=== PATIENT | male | born 1940 | race Caucasian/White ===

== ENCOUNTER 2017-12-20 20:14 | Observation (INO) | payer OTHER, MEDICARE ==
[2017-12-20] MEDS ORDERED: NA CHLORIDE 0.9% 1,000 ML ONE (21:18)
[2017-12-20 21:22] LABS: Absolute Lymphocytes (CBC) 0.9 K/uL (0.7-4.9); Absolute Monocytes 0.6 K/uL (0.1-1.3); Absolute Neutrophil 7.6 K/uL (1.8-8.0); Basophils % 0.1 % (0-1.3); Eosinophils % 2.1 % (0-4.4); Hematocrit 40.9 % (39.6-49.0); Lymphocytes % 10.1 % (15.3-44.8); MCH 31.2 pg (27.0-35.0); MCV 90.5 fL (80-100); MPV 7.8 fL (7.6-11.3); Monocytes % 6.7 % (3.3-12.3); RBC Red Blood Cell Count 4.52 M/uL (4.33-5.43)
[2017-12-20 21:34] LABS: Protime INR 0.96
[2017-12-20 21:36] LABS: Urine Blood NEGATIVE (NEG); Urine Glucose NEGATIVE (NEG); Urine Protein NEGATIVE (NEG); Urine pH 5.5 (5.0-7.0)
[2017-12-20 21:46] LABS: Bilirubin Direct 0.1 mg/dL (0-0.2); Bilirubin Total 0.5 mg/dL (0.2-1.0); CKMB Creatine Kinase MB 8.3 ng/mL (0.3-3.6); Magnesium 2.1 mg/dL (1.8-2.4); Potassium 3.7 mmol/L (3.5-5.1); Protein, Total 7.3 g/dL (6.4-8.2)
[2017-12-20] MEDS ORDERED: ASPIRIN 81 MG CHEWABLE TABLET ONE (22:13)
--- NOTE | 2017-12-20 22:18 | EDPHYS ---
Physician Documentation [facility] Name: Bradley Osei Age: 77 yrs Sex: Male : 1940 Arrival Date: 12/20/2017 Time: 20:17 Bed 17 Private MD: ED Physician Ryan Regan HPI: 12/20 22:09 This 77 yrs old Male presents to ER via EMS with complaints of Nausea. finesse 22:09 The patient presents to the emergency department with nausea, vomiting. finesse Historical: - Allergies: 20:37 NSAIDS; bs1 - Home Meds: 20:37 Aspirin Oral [Active]; tylenol [Active]; carvedilol oral oral [Active]; amlodipine oral bs1 [Active]; Novolin N Sub-Q [Active]; Novolin R Sub-Q [Active]; Spironolactone Oral [Active]; Lovastatin Oral [Active]; - PMHx: 20:37 enlarged prostate; High Cholesterol; Hypertension; carpal tunnel; bs1 20:42 Ulcers; stomach issues; bs1 - PSHx: 20:37 Cholecystectomy; shoulder replacement; back fusions; bs1 - Immunization history:: Adult Immunizations up to date. - Social history:: Smoking status: Patient/guardian denies using tobacco. - Ebola Screening: : Patient negative for fever greater than or equal to 101.5 degrees Fahrenheit, and additional compatible Ebola Virus Disease symptoms Patient denies exposure to infectious person. ROS: 22:09 Constitutional: Negative for fever, chills, and weight loss, Eyes: Negative for injury, finesse pain, redness, and discharge, ENT: Negative for injury, pain, and discharge, Neck: Negative for injury, pain, and swelling, Cardiovascular: Negative for chest pain, palpitations, and edema, Respiratory: Negative for shortness of breath, cough, wheezing, and pleuritic chest pain, Abdomen/GI: Negative for abdominal pain, nausea, vomiting, diarrhea, and constipation, Back: Negative for injury and pain, : Negative for injury, bleeding, discharge, and swelling, MS/Extremity: Negative for injury and deformity, Skin: Negative for injury, rash, and discoloration, Psych: Negative for depression, anxiety, suicide ideation, homicidal ideation, and hallucinations, Allergy/Immunology: Negative for hives, rash, and allergies, Endocrine: Negative for neck swelling, polydipsia, polyuria, polyphagia, and marked weight changes, Hematologic/Lymphatic: Negative for swollen nodes, abnormal bleeding, and unusual bruising. 22:09 Neuro: Positive for near syncope, weakness. Exam: 22:09 Constitutional: This is a well developed, well nourished patient who is awake, alert, finesse and in no acute distress. Head/Face: Normocephalic, atraumatic. Eyes: Pupils equal round and reactive to light, extra-ocular motions intact. Lids and lashes normal. Conjunctiva and sclera are non-icteric and not injected. Cornea within normal limits. Periorbital areas with no swelling, redness, or edema. ENT: Nares patent. No nasal discharge, no septal abnormalities noted. Tympanic membranes are normal and external auditory canals are clear. Oropharynx with no redness, swelling, or masses, exudates, or evidence of obstruction, uvula midline. Mucous membranes moist. Neck: Trachea midline, no thyromegaly or masses palpated, and no cervical lymphadenopathy. Supple, full range of motion without nuchal rigidity, or vertebral point tenderness. No Meningismus. Chest/axilla: Normal chest wall appearance and motion. Nontender with no deformity. No lesions are appreciated. Cardiovascular: Regular rate and rhythm with a normal S1 and S2. No gallops, murmurs, or rubs. Normal PMI, no JVD. No pulse deficits. Respiratory: Lungs have equal breath sounds bilaterally, clear to auscultation and percussion. No rales, rhonchi or wheezes noted. No increased work of breathing, no retractions or nasal flaring. Abdomen/GI: Soft, non-tender, with normal bowel sounds. No distension or tympany. No guarding or rebound. No evidence of tenderness throughout. Back: No spinal tenderness. No costovertebral tenderness. Full range of motion. Male : Normal genitalia with no discharge or lesions. Skin: Warm, dry with normal turgor. Normal color with no rashes, no lesions, and no evidence of cellulitis. MS/ Extremity: Pulses equal, no cyanosis. Neurovascular intact. Full, normal range of motion. Psych: Awake, alert, with orientation to person, place and time. Behavior, mood, and affect are within normal limits. 22:09 Neuro: Orientation: is normal, appropriate for stated age, Mentation: is normal, appropriate for stated age, Memory: is normal, appropriate for stated age, Cranial nerves: grossly normal, is grossly normal based on the patient's age, no acute changes, Cerebellar function: is grossly normal, is grossly normal based on the patient's age, no acute changes, Motor: no acute changes, moves all fours, Sensation: is normal, no obvious gross deficits, Gait: not tested. Babinski testing is normal. Vital Signs: 20:17 BP 167 / 66; Pulse 51; Resp 16; Temp 98(A); Pulse Ox 99% ; Weight 92.53 kg; Height 5 bs1 ft. 7 in. (170.18 cm); Pain 0/10; 21:17 BP 152 / 61; Pulse 48; Resp 15 S; Pulse Ox 99% on R/A; bs1 22:17 BP 160 / 72; Pulse 52; Resp 14 S; Pulse Ox 100% on R/A; bs1 23:17 BP 145 / 68; Pulse 58; Resp 16 S; Pulse Ox 97% on R/A; bs1 12/21 00:17 BP 131 / 60; Pulse 55; Resp 16 S; Temp 97.5(O); Pulse Ox 93% on R/A; Pain 0/10; bs1 12/20 20:17 Body Mass Index 31.95 (92.53 kg, 170.18 cm) bs1 MDM: 12/20 20:45 Patient medically screened. [facility] 22:09 Data reviewed: vital signs, nurses notes, lab test result(s), EKG, radiologic studies, [facility] CT scan, plain films. 12/20 21:06 Order name: Basic Metabolic Panel; Complete Time: 22:06 [facility] 12/20 21:06 Order name: CBC with Diff; Complete Time: 22:06 [facility] 12/20 21:06 Order name: Ckmb; Complete Time: 22: [facility] 12/20 21:06 Order name: CPK; Complete Time: 22: [facility] 12/20 21:06 Order name: LFT's; Complete Time: 22:06 [facility] 12/20 21:06 Order name: Magnesium; Complete Time: 22:06 [facility] 12/20 21:06 Order name: NT PRO-BNP; Complete Time: 22:06 [facility] 12/20 21:06 Order name: PT-INR; Complete Time: 22:06 [facility] 12/20 21:06 Order name: Ptt, Activated; Complete Time: 22: [facility] 12/20 21:06 Order name: Troponin (emerg Dept Use Only); Complete Time: 22: [facility] 12/20 21:06 Order name: XRAY Chest (1 view) [facility] 12/20 21:06 Order name: Lipase; Complete Time: 22: [facility] 12/20 21:16 Order name: Urine Culture [facility] 12/20 21:33 Order name: Urine Dipstick--Ancillary (enter results); Complete Time: 22: 12/20 21:06 Order name: EKG; Complete Time: 21: [facility] 12/20 21:06 Order name: Cardiac monitoring; Complete Time: : [facility] 12/20 21:06 Order name: EKG - Nurse/Tech; Complete Time: : [facility] 12/20 21:06 Order name: IV Saline Lock; Complete Time: : [facility] 12/20 21:06 Order name: Labs collected and sent; Complete Time: : [facility] 12/20 21:06 Order name: O2 Per Protocol; Complete Time: : [facility] 12/20 21:06 Order name: O2 Sat Monitoring; Complete Time: : [facility] 12/20 21:06 Order name: Urine Dipstick-Ancillary (obtain specimen); Complete Time: : [facility] 12/20 22:08 Order name: PO challenge; Complete Time: 22:35 [facility] Administered Medications: 21:27 Drug: NS 0.9% 1000 ml Route: IV; Rate: 125 ml/hr; Site: right antecubital; 1 12/21 00:38 Follow up: IV Status: Infusion continued upon admission bs1 12/20 22:14 Drug: Aspirin Chewable Tablet 162 mg Route: PO; bs1 12/21 00:38 Follow up: Response: No adverse reaction bs1 Disposition: 12/20/17 22:17 Hospitalization ordered by Briseida Vega for Observation. Preliminary diagnosis are Syncope and collapse - near, Hypoglycemia, unspecified. - Bed requested for Telemetry/MedSurg (observation). - Status is Observation. bs1 - Condition is Fair. - Problem is new. - Symptoms have improved. UTI on Admission? No Signatures: Dispatcher [employer] Sabrina Tesfaye RN RN kl Anderson, Corey, MD MD [facility] Chan, Isa, RN RN bs1 Corrections: (The following items were deleted from the chart) 12/20 22:22 22:17 Hospitalization Ordered by Briseida Vega MD for Observation. Preliminary finesse diagnosis is Syncope and collapse - near. Bed requested for Telemetry/MedSurg (observation). Status is Observation. Condition is Fair. Problem is new. Symptoms have improved. UTI on Admission? No. finesse 12/21 00:03 12/20 22:22 12/20/2017 22:17 Hospitalization Ordered by Briseida Vega MD for kl Observation. Preliminary diagnosis is Syncope and collapse - near; Hypoglycemia, unspecified. Bed requested for Telemetry/MedSurg (observation). Status is Observation. Condition is Fair. Problem is new. Symptoms have improved. UTI on Admission? No. finesse 12/21 00:57 00:03 12/20/2017 22:17 Hospitalization Ordered by Briseida Vega MD for Observation. bs1 Preliminary diagnosis is Syncope and collapse - near; Hypoglycemia, unspecified. Bed requested for Telemetry/MedSurg (observation). Status is Observation. Condition is Fair. Problem is new. Symptoms have improved. UTI on Admission? No. matt
--- NOTE | 2017-12-20 22:18 | ER ---
Nurse's Notes [facility] Name: Bradley Osei Age: 77 yrs Sex: Male : 1940 Arrival Date: 12/20/2017 Time: 20:17 Bed 17 Private MD: Diagnosis: Syncope and collapse-near;Hypoglycemia, unspecified Presentation: 12/20 20:17 Presenting complaint: EMS states: "Patient called for c/o nausea and weakness sometime bs1 today, patient was in his car in [place], patient states that his blood sugar may be low, BG was 84 oral glucose given." Patient denies any chest pain or SOB. Transition of care: patient was not received from another setting of care. Onset of symptoms was December 20, 2017. Risk Assessment: Do you want to hurt yourself or someone else? Patient reports no desire to harm self or others. Initial Sepsis Screen: Does the patient meet any 2 criteria? No. Patient's initial sepsis screen is negative. Does the patient have a suspected source of infection? No. Patient's initial sepsis screen is negative. Care prior to arrival: Medication(s) given: oral glucose Glucose check: 84 Oxygen administered. via nasal cannula, 3L NC. 20:17 Method Of Arrival: EMS: [facility] bs1 20:17 Acuity: PAT 3 bs1 Historical: - Allergies: 20:37 NSAIDS; bs1 - Home Meds: 20:37 Aspirin Oral [Active]; tylenol [Active]; carvedilol oral oral [Active]; amlodipine oral bs1 [Active]; Novolin N Sub-Q [Active]; Novolin R Sub-Q [Active]; Spironolactone Oral [Active]; Lovastatin Oral [Active]; - PMHx: 20:37 enlarged prostate; High Cholesterol; Hypertension; carpal tunnel; bs1 20:42 Ulcers; stomach issues; bs1 - PSHx: 20:37 Cholecystectomy; shoulder replacement; back fusions; bs1 - Immunization history:: Adult Immunizations up to date. - Social history:: Smoking status: Patient/guardian denies using tobacco. - Ebola Screening: : Patient negative for fever greater than or equal to 101.5 degrees Fahrenheit, and additional compatible Ebola Virus Disease symptoms Patient denies exposure to infectious person. Screenin:16 Abuse screen: Denies threats or abuse. Denies injuries from another. Nutritional bs1 screening: No deficits noted. Tuberculosis screening: No symptoms or risk factors identified. Fall Risk No fall in past 12 months (0 pts). No secondary diagnosis (0 pts). IV access (20 points). Ambulatory Aid- Crutches/Cane/Walker (15 pts). Gait- Weak (10 pts.). Mental Status- Oriented to own ability (0 pts). Total Perez Fall Scale indicates Low Risk Score (25-44 pts). Fall prevention measures have been instituted. Side Rails Up X 2 Frequent Obs/Assesments occuring Family Present and informed to notify staff if they need to leave bedside As available Patient and Family Educated on Fall Prevention Program and strategies. Assessment: 20:39 General: Appears in no apparent distress. uncomfortable, Behavior is cooperative. Pain: bs1 Denies pain. Neuro: Level of Consciousness is awake, lethargic, Oriented to person, place, time, situation, Appropriate for age Speech is normal, Facial symmetry appears normal, Pupils are PERRLA, Intact Reports dizziness, weakness Denies blurred vision difficulty swallowing, numbness headache. Cardiovascular: Denies chest pain, palpitations, shortness of breath, Heart tones S1 S2 present Capillary refill < 3 seconds Patient's skin is warm and dry. Respiratory: Airway is patent Trachea midline Respiratory effort is even, unlabored, Respiratory pattern is regular, symmetrical, Breath sounds are clear bilaterally. GI: Abdomen is round non-distended, Bowel sounds present X 4 quads. Reports nausea. : No signs and/or symptoms were reported regarding the genitourinary system. EENT: No signs and/or symptoms were reported regarding the EENT system. Derm: Skin is intact. Musculoskeletal: Circulation, motion, and sensation intact. Capillary refill < 3 seconds, Range of motion: intact in all extremities, Reports weakness in generalized body weakness. 21:30 Reassessment: No changes from previously documented assessment. Patient and/or family bs1 updated on plan of care and expected duration. Pain level reassessed. Patient is alert, oriented x 3, equal unlabored respirations, skin warm/dry/pink. 22:14 Reassessment: [place] and A diet sprite given to patient. bs1 22:35 Reassessment: PO challenge tolerated. bs1 12/21 00:30 Reassessment: Patient appears in no apparent distress at this time. Patient and/or bs1 family updated on plan of care and expected duration. Pain level reassessed. Patient is alert, oriented x 3, equal unlabored respirations, skin warm/dry/pink. Patient educated on POC and need for admit. No further needs at this time. Patient denies pain at this time. Vital Signs: 12/20 20:17 BP 167 / 66; Pulse 51; Resp 16; Temp 98(A); Pulse Ox 99% ; Weight 92.53 kg; Height 5 bs1 ft. 7 in. (170.18 cm); Pain 0/10; 21:17 BP 152 / 61; Pulse 48; Resp 15 S; Pulse Ox 99% on R/A; bs1 22:17 BP 160 / 72; Pulse 52; Resp 14 S; Pulse Ox 100% on R/A; bs1 23:17 BP 145 / 68; Pulse 58; Resp 16 S; Pulse Ox 97% on R/A; bs1 12/21 00:17 BP 131 / 60; Pulse 55; Resp 16 S; Temp 97.5(O); Pulse Ox 93% on R/A; Pain 0/10; bs1 12/20 20:17 Body Mass Index 31.95 (92.53 kg, 170.18 cm) bs1 ED Course: 12/20 20:17 Patient arrived in ED. fc 20:24 Isa Chan, RN is Primary Nurse. bs1 20:33 Triage completed. bs1 20:44 Ryan Regan MD is Attending Physician. [facility] 21:00 Inserted saline lock: 22 gauge in right antecubital area, using aseptic technique. bs1 Blood collected. 22:16 X-ray completed. Portable x-ray completed in exam room. Patient tolerated procedure la2 well. 22:16 Briseida Vega MD is Hospitalizing Provider. [facility] 22:17 Patient has correct armband on for positive identification. Bed in low position. Call bs1 light in reach. Side rails up X 1. Pulse ox on. NIBP on. 22:17 Arm band placed on left wrist. EKG completed in triage. Results shown to MD. bs1 22:22 XRAY Chest (1 view) In Process Unspecified. EDMS 12/21 00:36 No provider procedures requiring assistance completed. bs1 00:37 Patient admitted, IV remains in place. intact. bs1 Administered Medications: 12/20 21:27 Drug: NS 0.9% 1000 ml Route: IV; Rate: 125 ml/hr; Site: right antecubital; bs 12/21 00:38 Follow up: IV Status: Infusion continued upon admission bs1 12/20 22:14 Drug: Aspirin Chewable Tablet 162 mg Route: PO; bs 12/21 00:38 Follow up: Response: No adverse reaction bs1 Outcome: 12/20 22:17 Decision to Hospitalize by Provider. [facility] 12/21 00:36 Admitted to Tele accompanied by tech, via stretcher, room 431, Report called to bs1 TAWNYA Dhillon Condition: stable Instructed on the need for admit. 00:57 Patient left the ED. bs1 Signatures: Dispatcher [employer] Ryan Rutherford MD MD cha Chretien, Felicia, RN RN fc Ardoin, Leslie la2 Salazar, Brittany, RN RN bs1
--- NOTE | 2017-12-20 23:05 | P.HP ---
Certification for Inpatient Patient admitted to: Observation With expected LOS: <2 Midnights Practitioner: I am a practitioner with admitting privileges, knowledge of patient current condition, hospital course, and medical plan of care. Services: Services provided to patient in accordance with Admission requirements found in Title 42 Section 412.3 of the Code of Federal Regulations Patient History Date of Service: 12/20/17 Reason for admission: weakness, nausea. History of Present Illness: Mr Osei is a 77 years old male with history of IDDM, HTN, who was at [facility] today when suddenly start feeling nausea, weakness and diaphoretic. He believed that it was hypoglycemia, and he ate 2 proteines bar. Gradually start feeling better. Then he was able to drive back home, however, he did not feel completely recover. He denied fever, but has had some chills. Also denied cough , SOB, chest pain, abdominal pain or burning urination. He called 911, when EMS arrived home his BS was 84 mg/dl. He states that he usually run high BS and 84 was low for him. Lab work shows normal WBC count, BS 117 mg/dl. Allergies No Known Allergies Allergy (Verified 10/14/14 22:17) Home medications list reviewed: Yes Home Medications: Amlodipine [Norvasc*] 10 mg PO DAILY 10/15/14 Ascorbic Acid [Vitamin C*] 500 mg PO BID 10/15/14 Hydrocodone 5/APAP 325 [[place] 5/325*] 1 tab PO Q4H PRN 10/15/14 Insulin Aspart [Novolog] 5 units SQ TID 10/15/14 Insulin Detemir [Levemir] 35 units SQ DAILY 10/15/14 Lovastatin [Mevacor*] 40 mg PO BEDTIME 10/15/14 Ranitidine [Zantac*] 150 mg PO DAILY PRN 10/15/14 Tamsulosin [Flomax*] 1 cap PO DAILY 10/15/14 Tramadol HCl [Ultram] 50 mg PO BID PRN 10/15/14 Aspirin [Ecotrin 81 MG] 81 mg PO DAILY #30 tablet. 10/29/14 Carvedilol [Coreg*] 12.5 mg PO BID #60 tab 10/29/14 Cyclobenzaprine [Flexeril*] 10 mg PO BIDP PRN #60 tab 10/29/14 Docusate [Colace Cap*] 100 mg PO BID #60 cap 10/29/14 Iron/FA/Vit B-Com W/C [Hemocyte Plus*] 1 tab PO BIDWM #60 tab 10/29/14 Sodium Chloride Tab [Sodium Chloride*] 2 gm PO BIDWM #60 tab 10/29/14 - Past Medical/Surgical History Diabetic: Yes -: ESSENTIAL HTN -: BPH -: GERD -: PEPTIC ULCER DISEASE -: BACK PAIN -: CARPAL RICHARD -: TONSILECTOMY -: VASECTOMY -: ALEJANDRO - Family History Family History: Reviewed- Non-Contributory - Social History Smoking Status: Never smoker Alcohol use: No CD- Drugs: No Caffeine use: Yes Place of Residence: Home Review of Systems 10-point ROS is otherwise unremarkable Physical Examination - Physical Exam General: Alert, In no apparent distress HEENT: Atraumatic, PERRLA, Mucous membr. moist/pink, EOMI, Sclerae nonicteric Neck: Supple, 2+ carotid pulse no bruit, No LAD, Without JVD or thyroid abnormality Respiratory: Clear to auscultation bilaterally, Normal air movement Cardiovascular: Regular rate/rhythm, Normal S1 S2 Gastrointestinal: Normal bowel sounds, No tenderness Musculoskeletal: No tenderness, Swelling (LE edema 1+ bilateral) Integumentary: No rashes Neurological: Normal speech, Normal strength at 5/5 x4 extr, Normal tone, Normal affect Lymphatics: No axilla or inguinal lymphadenopathy - Studies Laboratory Data (last 24 hrs) 12/20/17 21:00: PT 11.3, INR 0.96, APTT 28.2 12/20/17 21:00: WBC 9.3, Hgb 14.1, Hct 40.9, Plt Count 169 12/20/17 21:00: Sodium 136, Potassium 3.7, BUN 21 H, Creatinine 0.90, Glucose 117 H, Magnesium 2.1, Total Bilirubin 0.5, AST 32, ALT 43, Alkaline Phosphatase 75, Lipase 128 Assessment and Plan - Problems (Diagnosis) (1) Pre-syncope Current Visit: Yes Status: Acute (2) Diabetes mellitus type 2, insulin dependent Onset Date: 10/17/14 Current Visit: No Status: Acute (3) Essential hypertension Onset Date: 10/17/14 Current Visit: No Status: Acute - Plan Mr Osei will be admitted to the hospital due to presyncope episode. There are no obvious signs of acute infection. Possible hypoglycemic episode. He is still weak, and does not feel completely recover. Will monitor his BS and adjust it with SSI. - Advance Directives Does patient have a Living Will: No Does patient have a Durable POA for Healthcare: No - Code Status/Comfort Care Code Status Assessed: Yes Code Status: Full Code
[2017-12-21 01:05] VITALS: O2SAT 93
[2017-12-21] MEDS ORDERED: ONDANSETRON 4 MG/2 ML VIAL IV PRN (01:22)
[2017-12-21] MEDS ORDERED: ACETAMINOPHEN 500 MG TAB PO PRN (01:22)
[2017-12-21] MEDS ORDERED: POTASSIUM 25 MEQ EFFERV TAB PO ONE (01:35)
[2017-12-21] MEDS: NA CHLORIDE 0.9% 1,000 ML IV SCH ×2 (01:56→11:22)
[2017-12-21 04:56] VITALS: BMI 32.7
--- NOTE | 2017-12-21 06:20 | EKG ---
Test Date: 2017-12-20 Test Time: 21:20:07 Cuff Matcher: DENISHA MEASUREMENT RESULTS: Intervals: Rate: 52 VT: 184 QRSD: 168 QT: 490 QTc: 455 [place]: P: 20 VT: 184 QRS: -38 T: -12 INTERPRETIVE STATEMENTS: Sinus bradycardia Left axis deviation Right bundle branch block Abnormal ECG Compared to ECG 09/15/1995 09:34:00 Left-axis deviation now present Right bundle-branch block now present Sinus rhythm no longer present Electronically Signed On 12-21-17 06:19:31 CDT by Lamine Luna
[2017-12-21 07:24] LABS: Absolute Lymphocytes (CBC) 1.4 K/uL (0.7-4.9); Absolute Monocytes 0.6 K/uL (0.1-1.3); Absolute Neutrophil 3.5 K/uL (1.8-8.0); Basophils % 0.2 % (0-1.3); Eosinophils % 4.1 % (0-4.4); Hematocrit 35.1 % (39.6-49.0); MCH 31.7 pg (27.0-35.0); MCV 90.4 fL (80-100); Monocytes % 10.3 % (3.3-12.3); RBC Red Blood Cell Count 3.89 M/uL (4.33-5.43)
[2017-12-21] MEDS: INSULIN -REGULAR HUMAN 50 UNIT/0.5 ML ML SQ SCH ×3 (07:30→17:08)
[2017-12-21 07:37] LABS: BUN Blood Urea Nitrogen 16 mg/dL (7-18); Bicarbonate 28 mmol/L (21-32); Glucose Level 124 mg/dL (74-106); Potassium 3.9 mmol/L (3.5-5.1); Sodium Level 139 mmol/L (136-145)
[2017-12-21] MEDS ORDERED: ENOXAPARIN 40 MG/0.4 ML SQ SCH (09:00)
--- NOTE | 2017-12-21 10:56 | RAD REPORT ---
EXAM DESCRIPTION: CT - Head Brain Wo Cont - 12/21/2017 10:15 am CLINICAL HISTORY: syncope COMPARISON: <Comparisons> TECHNIQUE: All CT scans are performed using dose optimization technique as appropriate and may inclu de automated exposure control or mA/KV adjustment according to patient size. FINDINGS: No intracranial hemorrhage, hydrocephalus or extra-axial fluid collection.Mild generalized brain atrophy is present with mild periventricular and deep white matter chronic microvascular ische dimas changes.No areas of brain edema or evidence of midline shift. The paranasal sinuses and mastoids are clear. The calvarium is intact. IMPRESSION: No acute intracranial abnormality.
[2017-12-21] MEDS ORDERED: AMLODIPINE 10 MG TAB PO SCH (11:00)
[2017-12-21] MEDS ORDERED: SPIRONOLACTONE 25 MG TABLET PO SCH (11:00)
[2017-12-21] MEDS ORDERED: ASPIRIN EC 81 MG TAB PO SCH (11:00)
[2017-12-21] MEDS ORDERED: TAMSULOSIN 0.4 MG SR CAP PO SCH (11:00)
[2017-12-21] MEDS ORDERED: CARVEDILOL 6.25 MG TAB PO SCH (11:00)
--- NOTE | 2017-12-21 12:00 | P.DS ---
Admission Date: 12/20/17 Discharge Date: 12/21/17 Disposition: ROUTINE DISCHARGE Discharge Condition: FAIR Reason for Admission: weakness, nausea. - Problems (1) Pre-syncope Current Visit: Yes Status: Acute (2) Benign hypertrophy of prostate Onset Date: 10/17/14 Current Visit: No Status: Acute (3) Diabetes mellitus type 2, insulin dependent Onset Date: 10/17/14 Current Visit: No Status: Acute (4) Essential hypertension Onset Date: 10/17/14 Current Visit: No Status: Acute (5) GERD (gastroesophageal reflux disease) Onset Date: 10/17/14 Current Visit: No Status: Acute Brief History of Present Illness: From H&P Mr Osei is a 77 years old male with history of IDDM, HTN, who was at [facility] today when suddenly start feeling nausea, weakness and diaphoretic. He believed that it was hypoglycemia, and he ate 2 proteines bar. Gradually start feeling better. Then he was able to drive back home, however, he did not feel completely recover. He denied fever, but has had some chills. Also denied cough , SOB, chest pain, abdominal pain or burning urination. He called 911, when EMS arrived home his BS was 84 mg/dl. He states that he usually run high BS and 84 was low for him. Lab work shows normal WBC count, BS 117 mg/dl. Hospital Course: Patient is a 77-year-old male who was admitted to the hospital for presyncopal episode. Patient was found to have low blood sugar his sugar level was 80 typically runs much higher. Patient did not have any loss of consciousness or any falls. Patient was admitted to the hospital and started on IV fluids. Blood sugar levels today or elevated he is not received his home dose of insulin as yet. No further near syncopal episode. Head CT scan was done which was negative. Patient feels significantly improved and able to ambulate without any difficulty or dizziness. Patient did not have any further complaints felt back to baseline. Patient was discharged home in a stable condition. Code status full. Vital Signs/Physical Exam: Temp Pulse Resp BP Pulse Ox 98.7 F 52 16 141/64 H 97 12/21/17 08:00 12/21/17 10:47 12/21/17 08:00 12/21/17 10:47 12/21/17 08:00 General: Alert, In no apparent distress, Oriented x3 HEENT: Atraumatic, PERRLA, EOMI Neck: Supple, JVD not distended Respiratory: Clear to auscultation bilaterally, Normal air movement Cardiovascular: Normal pulses, Regular rate/rhythm, Normal S1 S2, Edema Gastrointestinal: Normal bowel sounds, Soft and benign, Non-distended, No tenderness Musculoskeletal: No clubbing, No tenderness Integumentary: No rashes, No erythema, No cyanosis Neurological: Normal speech, Normal strength at 5/5 x4 extr, Normal tone, Normal affect Laboratory Data at Discharge: WBC 5.7 K/uL (4.3-10.9) D 12/21/17 06:23 Hgb 12.3 g/dL (13.6-17.9) L 12/21/17 06:23 Hct 35.1 % (39.6-49.0) L 12/21/17 06:23 Plt Count 155 K/uL (152-406) 12/21/17 06:23 PT 11.3 SECONDS (9.5-12.5) 12/20/17 21:00 INR 0.96 12/20/17 21:00 APTT 28.2 SECONDS (24.3-36.9) 12/20/17 21:00 Sodium 139 mmol/L (136-145) 12/21/17 06:23 Potassium 3.9 mmol/L (3.5-5.1) 12/21/17 06:23 BUN 16 mg/dL (7-18) 12/21/17 06:23 Creatinine 0.80 mg/dL (0.55-1.3) 12/21/17 06:23 Glucose 124 mg/dL (74-106) H 12/21/17 06:23 Magnesium 1.8 mg/dL (1.8-2.4) 12/21/17 06:23 Total Bilirubin 0.5 mg/dL (0.2-1.0) 12/20/17 21:00 AST 32 U/L (15-37) 12/20/17 21:00 ALT 43 U/L (12-78) 12/20/17 21:00 Alkaline Phosphatase 75 U/L (45-117) 12/20/17 21:00 Lipase 128 U/L (73-393) 12/20/17 21:00 Imagings Data: CT head shows no acute intracranial abnormalities Home Medications: Amlodipine [Norvasc*] 10 mg PO DAILY 10/15/14 Lovastatin [Mevacor*] 40 mg PO BEDTIME 10/15/14 Tamsulosin [Flomax*] 1 cap PO DAILY 10/15/14 Aspirin [Ecotrin 81 MG] 81 mg PO DAILY #30 tablet. 10/29/14 Carvedilol [Coreg*] 6.25 mg PO BID 12/20/17 Insulin -Regular Human [Novolin -R*] 0 unit SQ QID 12/20/17 Insulin NPH Human [Novolin N (Humulin N)*] 15 units SQ BID 12/20/17 Spironolactone 12.5 mg PO DAILY 12/20/17 Patient Discharge Instructions: Follow up with primary care physician in 2-3 days. Return to ER for worsening condition Diet: ADA Activity: Fall precautions
--- NOTE | 2017-12-21 12:41 | RAD REPORT ---
EXAM DESCRIPTION: RAD - Chest Single View - 12/20/2017 10:22 pm CLINICAL HISTORY: COUGH Chest pain. COMPARISON: No comparisons FINDINGS: Portable technique limits examination quality. Linear atelectasis is present in the left base with mildly elevated left hemidiaphragm. The lungs are otherwise grossly clear. The heart is mildly prominent. No displaced fractures.Left shoulder arthrop lasty. IMPRESSION: No acute intrathoracic process suspected.
[2017-12-21 16:04] VITALS: BP 136/58
[2017-12-21 16:44] VITALS: TEMP 98.7
[2017-12-21] MEDS ORDERED: LOVASTATIN 40 MG PO SCH (21:00)
[2017-12-21] MEDS ORDERED: ATORVASTATIN 20 MG TAB PO SCH (21:00)
[2017-12-21] MEDS ORDERED: NPH (HUMAN) 100 UNITS/ML INSULIN SQ SCH (21:00)
== END 2017-12-21 18:10 | disposition home or self-care (01) ==
LOC: ER 20:14 → ERHOLD 22:18 → 4TH 12-21 00:32
PROVIDERS: ADMIT Internal Medicine; ATTEND Internal Medicine
DX: R55 Syncope and collapse (principal); N40.0 Benign prostatic hyperplasia without lower urinary tract symptoms; E11.9 Type 2 diabetes mellitus without complications; I10 Essential (primary) hypertension; K21.9 Gastro-esophageal reflux disease without esophagitis
CPT/HCPCS: 36415; 70450; 71045; 80048 ×2; 80076; 81003; 82550; 82553; 82962 ×5; 83036; 83690; 83735 ×2; 83880; 84484; 85025 ×2; 85610; 85730; 87086; 87088; 93005; 96360; 96361; 99285; G0378 ×2; J1650; J7030 ×2

== ENCOUNTER 2020-12-28 13:45 | Emergency (ER) | payer MEDICARE, OTHER ==
--- OUTSIDE RECORDS SUMMARY | 2020-12-28 13:48 | XMS REPORT | Continuity of Care Document ---
:1940 Author Organization [facility] t Address [address] [place] [address] Care Team Providers Name Role Phone Naveed Smith MD Attending Clinician Dain DAVIS Attending Clinician Pob, Lab Main Attending Clinician Unavailable Doctor Unassigned, Name Attending Clinician Unavailable Problems This patient has no known problems. Allergies, Adverse Reactions, Alerts This patient has no known allergies or adverse reactions. Medications This patient has no known medications. Procedures This patient has no known procedures. Encounters Start End Encounter Admission Attending Care Care Encounter Source Date/Time Date/Time Type Type Clinicians Facility Department ID 2020-12-04 2020-12-04 Refill RACHEL Smith [id number] 00:00:00 00:00:00 [facility] [id number] [place] [id number] Professio [phone] nal [facility] Office Building One 2020-11-27 2020-11-27 Refill Sarah [facility] [id number] 00:00:00 00:00:00 [facility] [id number] [place] [id number] Professio [phone] nal 044 Office [address] One 2020-11-26 2020-11-26 Refill RACHEL Gautam [id number] 00:00:00 00:00:00 [place] [facility] [id number] [facility] [id number] [employer] [facility] [phone] [facility] 2020-11-17 2020-11-17 Negro Sarah [facility] [id number] 00:00:00 00:00:00 [facility] [id number] [place] [id number] Professio [phone] [facility] 044 Office [address] One 2020-11-13 2020-11-13 Negro Smith [facility] [id number] 00:00:00 00:00:00 [facility] [id number] [place] [id number] Professio [phone] [place] [address] Office [facility] 2020-11-08 2020-11-08 Design Engineering Intern Eileen Pastrana [facility] [id number] 08:35:56 08:50:56 Visit Lab Main [place] [id number] [place] [id number] Professio [phone] [facility] [address] [facility] 2020-11-07 2020-11-07 Office Gautam, [facility] [id number] 13:50:38 14:30:36 Visit Gaurav Mclaughlin [id number] [place] [id number] Professio [phone] [facility] [address] [facility] 2020-11-07 2020-11-07 Orders Doctor YOLANDA [id number] 00:00:00 00:00:00 Only Unassigned, ISAI [id number] [facility] [id number] [phone] [phone] Results This patient has no known results.
[2020-12-28 14:30] LABS: Urine Blood Negative (Negative); Urine Glucose Negative (Negative); Urine Protein Negative (Negative); Urine Specific Gravity 1.015 (1.005-1.030); Urine pH 6.5 (5.0-7.0)
--- NOTE | 2020-12-28 14:43 | RAD REPORT ---
EXAM DESCRIPTION: CT - Stone Protocol - 12/28/2020 2:33 pm CLINICAL HISTORY: Flank pain. right lower back pain COMPARISON: No comparisons TECHNIQUE: Axial images were obtained without oral or IV contrast. Lack of contrast limits solid org an and vascular assessment. The [id number] spans the entirety of the system partially obscuring uppermost abdomen and lung bases. Coronal reformatted images were obtained and reviewed. All CT scans are performed using dose optimization technique as appropriate and may include automated exposure control or mA/KV adjustment according to patient size. FINDINGS: The lower lung saldana are clear. Cholecystectomy clips. Imaged portions of the liver and spleen show no suspicious findings on non-contrast imaging. The panc reas and adrenal glands are normal. No pathologic lymphadenopathy in the abdomen or pelvis. No urinary tract stones or obstructive uropathy. No bowel obstruction, free air, free fluid or abscess. Normal appendix noted.Moderate stool is presen t throughout the colon. Postsurgical lumbar spine with hardware in place. IMPRESSION: No urinary tract stones or obstructive uropathy. Postsurgical lower lumbar spine with hardware in place.
[2020-12-28 14:49] LABS: Absolute Lymphocytes (CBC) 1.3 K/uL (0.7-4.9); Basophils % 0.3 % (0-1.3); Hematocrit 41.5 % (39.6-49.0); Lymphocytes % 16.7 % (15.3-44.8); MPV 8.5 fL (7.6-11.3)
--- NOTE | 2020-12-28 15:41 | EDPHYS ---
Physician Documentation [facility] Name: Bradley Osei Age: 80 yrs Sex: Male : 1940 Arrival Date: 12/28/2020 Time: 13:48 Bed 19 Private MD: ED Physician Zhen Lopez HPI: 12/28 14:23 This 80 yrs old Male presents to ER via EMS with complaints of right lower rn back pain. 14:23 The patient presents with pain that is acute. The symptoms are located in the low back. rn 14:23 Onset: The symptoms/episode began/occurred 3 day(s) ago. The pain does not radiate. rn Associated signs and symptoms: Pertinent negatives: abdominal pain, chest pain, constipation, dysuria, fever, headache, hematuria, incontinence, nausea, numbness, tingling, urinary retention, vomiting, weakness. Modifying factors: The patient symptoms are alleviated by nothing, the patient symptoms are aggravated by any movement. Severity of symptoms: At their worst the symptoms were moderate, in the emergency department the symptoms are unchanged. The patient has not experienced similar symptoms in the past. The patient has not recently seen a physician. Reports right lower back pain, no fall or direct trauma, does have to help 2/2 mobility issues, and urinary catheter. Thinks strained his back helping . Began a few days ago. Worse with movement. Able to walk [address] No bowel/bladder problems, no weakness or paresthesias of lower limbs. . Historical: - Allergies: 13:50 NSAIDS; jd3 - Home Meds: 13:50 Aspirin Oral [Active]; spironolactone Oral [Active]; amlodipine oral [Active]; Cozaar jd3 Oral [Active]; omeprazole Oral [Active]; Lovastatin Oral [Active]; Novolin N Sub-Q [Active]; Novolin R Sub-Q [Active]; carvedilol oral [Active]; Tylenol oral [Active]; - PMHx: 13:50 carpal tunnel; Hypertension; enlarged prostate; High Cholesterol; stomach issues; jd3 Ulcers; Diabetes mellitus; - PSHx: 13:50 Cholecystectomy; back surgery; jd3 - Immunization history:: Adult Immunizations up to date, Client reports receiving the 2nd dose of the Covid vaccine, Pneumococcal vaccine is up to date, Flu vaccine is up to date. - Social history:: Smoking status: Patient denies any tobacco usage or history of. - Family history:: not pertinent. - Hospitalizations: : No recent hospitalization is reported. ROS: 14:23 Constitutional: Negative for fever, chills, and weight loss, Eyes: Negative for injury, rn pain, redness, and discharge, Neck: Negative for injury, pain, and swelling, Cardiovascular: Negative for chest pain, palpitations, and edema, Respiratory: Negative for shortness of breath, cough, wheezing, and pleuritic chest pain, Abdomen/GI: Negative for abdominal pain, nausea, vomiting, diarrhea, and constipation, Back: Negative for injury : Negative for injury, bleeding, discharge, and swelling, MS/Extremity: Negative for injury and deformity, Skin: Negative for injury, rash, and discoloration, Neuro: Negative for headache, weakness, numbness, tingling, and seizure. Exam: 14:23 Constitutional: This is a well developed, well nourished patient who is awake, alert, rn and in no acute distress. Head/Face: Normocephalic, atraumatic. Cardiovascular: Bradycardic, regular. No pulse deficits. Respiratory: No increased work of breathing, no retractions or nasal flaring. Abdomen/GI: Soft, non-tender, no masses Back: No spinal tenderness. + mild right lower back tenderness without lesions or skin changes. Skin: Warm, dry MS/ Extremity: Pulses equal, no cyanosis. Neurovascular intact. Full, normal range of motion. Equal circumference. Neuro: Awake and alert, GCS 15, oriented to person, place, time, and situation. Cranial nerves II-XII grossly intact. Motor strength 5/5 in all extremities. Sensory grossly intact. Cerebellar exam normal. Vital Signs: 13:54 BP 154 / 58; Pulse 57; Resp 16 S; Temp 97.6(TE); Pulse Ox 99% on R/A; Weight 95.25 kg jd3 (R); Height 5 ft. 8 in. (172.72 cm) (R); Pain 5/10; 15:13 BP 135 / 64; Pulse 56; Resp 17 S; Pulse Ox 99% on R/A; jd3 13:54 Body Mass Index 31.93 (95.25 kg, 172.72 cm) jd3 MDM: 14:02 Patient medically screened. rn 15:13 Differential diagnosis: arthritis, chronic back pain, Fatigue Hydronephrosis rn Osteoarthritis ruptured disc, sprain, Ureterolithiasis vertebral fracture. 15:17 Data reviewed: vital signs, nurses notes, lab test result(s), radiologic studies, CT rn scan, and as a result, I will discharge patient. Counseling: I had a detailed discussion with the patient and/or guardian regarding: the historical points, exam findings, and any diagnostic results supporting the discharge/admit diagnosis, lab results, radiology results, the need for outpatient follow up, to return to the emergency department if symptoms worsen or persist or if there are any questions or concerns that arise at home. Response to treatment: the patient's symptoms have mildly improved after treatment, and as a result, I will discharge patient. Special discussion: I discussed with the patient/guardian in detail that at this point there is no indication for admission to the hospital. It is understood, however, that if the symptoms persist or worsen the patient needs to return immediately for re-evaluation. ED course: NO acute findings ct stone protocol, neg UA, afebrile, no direct trauma, is ambulatory and no signs of spinal compression, will dc home with OTC anti-inflammatories and heat/stretching. Given return precautions. Discussed with patient and will not give muscle relaxer given he cares for . . 12/28 14:11 Order name: CBC with Diff; Complete Time: 15:09 rn 12/28 14:11 Order name: Basic Metabolic Panel; Complete Time: 15: rn 12/28 14:11 Order name: IV Start; Complete Time: 14:24 rn 12/28 14:11 Order name: Urine Microscopic Only rn 12/28 14:11 Order name: CT Stone Protocol; Complete Time: 15:09 rn 12/28 14:30 Order name: Urine Dipstick-Ancillary; Complete Time: 15:09 EDMS 12/28 14:11 Order name: Urine Dipstick-Ancillary (obtain specimen); Complete Time: 14:31 rn Administered Medications: No medications were administered Disposition Summary: 12/28/20 15:19 Discharge Ordered Location: Home rn Problem: new rn Symptoms: have improved rn Condition: Stable rn Diagnosis - Low back pain rn - Muscle spasm of back rn Followup: rn - With: Private Physician - When: As needed - Reason: Recheck today's complaints, Re-evaluation by your physician Discharge Instructions: - Discharge Summary Sheet rn - Acute Back Pain, Adult rn - Muscle Cramps and Spasms rn - Back Injury Prevention, [id number] rn - Back Exercises, [id number] rn Forms: - Medication Reconciliation Form rn - Thank You Letter rn - Antibiotic food and beverage intern - Prescription Opioid Use rn Signatures: Dispatcher [employer] EDZhen Workman MD MD rn Davies, Jonathon, RN RN jd3 Corrections: (The following items were deleted from the chart) 13:54 13:50 Home Meds: Novolin R Regular U-100 Insulin injection; jd3 jd3
--- NOTE | 2020-12-28 15:41 | ER ---
Nurse's Notes [facility] Name: Bradley Osei Age: 80 yrs Sex: Male : 1940 Arrival Date: 12/28/2020 Time: 13:48 Bed 19 Private MD: Diagnosis: Low back pain;Muscle spasm of back Presentation: 12/28 13:48 Chief complaint: EMS states: "80 year old male reporting lower right sided back pain. jd3 the pain has caused him to require assistance when standing. no injury reported. no other symptoms reported.". Coronavirus screen: At this time, the client does not indicate any symptoms associated with coronavirus-19. Ebola Screen: Patient negative for fever greater than or equal to 101.5 degrees Fahrenheit, and additional compatible Ebola Virus Disease symptoms. Initial Sepsis Screen: Does the patient meet any 2 criteria? No. Patient's initial sepsis screen is negative. Does the patient have a suspected source of infection? No. Patient's initial sepsis screen is negative. Risk Assessment: Do you want to hurt yourself or someone else? Patient reports no desire to harm self or others. Onset of symptoms was December 27, 2020. 13:48 Method Of Arrival: EMS: [facility] jd3 13:48 Acuity: PAT 3 jd3 Historical: - Allergies: 13:50 NSAIDS; jd3 - Home Meds: 13:50 Aspirin Oral [Active]; spironolactone Oral [Active]; amlodipine oral [Active]; Cozaar jd3 Oral [Active]; omeprazole Oral [Active]; Lovastatin Oral [Active]; Novolin N Sub-Q [Active]; Novolin R Sub-Q [Active]; carvedilol oral [Active]; Tylenol oral [Active]; - PMHx: 13:50 carpal tunnel; Hypertension; enlarged prostate; High Cholesterol; stomach issues; jd3 Ulcers; Diabetes mellitus; - PSHx: 13:50 Cholecystectomy; back surgery; jd3 - Immunization history:: Adult Immunizations up to date, Client reports receiving the 2nd dose of the Covid vaccine, Pneumococcal vaccine is up to date, Flu vaccine is up to date. - Social history:: Smoking status: Patient denies any tobacco usage or history of. - Family history:: not pertinent. - Hospitalizations: : No recent hospitalization is reported. Screenin:55 Abuse screen: Denies threats or abuse. Nutritional screening: No deficits noted. jd3 Tuberculosis screening: No symptoms or risk factors identified. Fall Risk Ambulatory Aid- None/Bed Rest/Nurse Assist (0 pts). Gait- Normal/Bed Rest/Wheelchair (0 pts) Mental Status- Oriented to own ability (0 pts). Total Perez Fall Scale indicates No Risk (0-24 pts). Assessment: 13:56 General: Appears in no apparent distress. comfortable, Behavior is calm, cooperative, jd3 appropriate for age. Pain: Complains of pain in right flank Quality of pain is described as shooting, tender, Aggravated by increased activity, weight bearing. Neuro: Level of Consciousness is awake, alert, obeys commands, Oriented to person, place, time, situation. Cardiovascular: Denies chest pain, Capillary refill < 3 seconds Patient's skin is warm and dry. Respiratory: Airway is patent Respiratory effort is even, unlabored, Respiratory pattern is regular, symmetrical, Denies cough, shortness of breath. GI: No signs and/or symptoms were reported involving the gastrointestinal system. Patient currently denies constipation, diarrhea, nausea, vomiting. : Denies burning with urination, inability to void, incontinence, urinary frequency, urgency. EENT: No signs and/or symptoms were reported regarding the EENT system. Derm: Skin is intact, Skin is dry, Skin is normal, Skin temperature is warm. Musculoskeletal: Circulation, motion, and sensation intact. Range of motion: intact in all extremities, pt reports unable to stand on his own without assistance due to the pain. 15:13 Reassessment: Patient appears in no apparent distress at this time. No changes from jd3 previously documented assessment. Patient and/or family updated on plan of care and expected duration. Pain level reassessed. Patient is alert, oriented x 3, equal unlabored respirations, skin warm/dry/pink. 15:43 Reassessment: Patient appears in no apparent distress at this time. No changes from jd3 previously documented assessment. Patient and/or family updated on plan of care and expected duration. Pain level reassessed. Patient is alert, oriented x 3, equal unlabored respirations, skin warm/dry/pink. 16:07 Reassessment: Patient appears in no apparent distress at this time. Patient and/or jd3 family updated on plan of care and expected duration. Pain level reassessed. Patient is alert, oriented x 3, equal unlabored respirations, skin warm/dry/pink. assisted to the front of ER with wheelchair and into car with family for discharge. Vital Signs: 13:54 BP 154 / 58; Pulse 57; Resp 16 S; Temp 97.6(TE); Pulse Ox 99% on R/A; Weight 95.25 kg jd3 (R); Height 5 ft. 8 in. (172.72 cm) (R); Pain 5/10; 15:13 BP 135 / 64; Pulse 56; Resp 17 S; Pulse Ox 99% on R/A; jd3 13:54 Body Mass Index 31.93 (95.25 kg, 172.72 cm) jd3 ED Course: 13:48 Patient arrived in ED. jd3 13:50 Triage completed. jd3 13:54 Arm band placed on. jd3 13:55 Patient has correct armband on for positive identification. Bed in low position. Call jd3 light in reach. Side rails up X2. Pulse ox on. NIBP on. 14:02 Zhen Lopez MD is Attending Physician. rn 14:13 Roshan Rodriguez RN is Primary Nurse. jd3 14:24 Inserted saline lock: 20 gauge in right forearm, using aseptic technique. Blood jd3 collected. 14:32 CT Stone Protocol In Process Unspecified. EDMS 15:14 No provider procedures requiring assistance completed. jd3 16:07 IV discontinued, intact, bleeding controlled, No redness/swelling at site. Pressure jd3 dressing applied. Administered Medications: No medications were administered Outcome: 15:19 Discharge ordered by . rn 15:43 Condition: stable jd3 16:07 Discharged to home via wheelchair, with family, with friend. jd3 16:07 Discharge instructions given to patient, Instructed on discharge instructions, follow up and referral plans. Demonstrated understanding of instructions, follow-up care. 16:07 Patient left the ED. jd3 Signatures: Dispatcher [employer] EDMS Zhen Lopez MD MD rn Davies, Jonathon, RN RN jd3 Corrections: (The following items were deleted from the chart) 13:54 13:50 Home Meds: Novolin R Regular U-100 Insulin injection; jd3 jd3
[2020-12-28 16:12] LABS: Urine Bacteria <20 /HPF (NONE SEEN); Urine RBC NONE SEEN /HPF (NONE SEEN)
[2020-12-28 16:15] VITALS: TEMP 97.6; O2SAT 99
[2020-12-28 16:16] VITALS: BP 135/64
== END 2020-12-28 16:07 | disposition home or self-care (01) ==
LOC: ER 13:45
DX: M62.830 Muscle spasm of back (principal); I10 Essential (primary) hypertension; E11.9 Type 2 diabetes mellitus without complications; Z79.4 Long term (current) use of insulin; Z79.82 Long term (current) use of aspirin; Z88.6 Allergy status to analgesic agent
CPT/HCPCS: 36415; 74176; 76377; 80048; 81003; 81015; 85025; 99284

== ENCOUNTER 2021-03-12 09:42 | Emergency (ER) | payer OTHER ==
--- NOTE | 2021-03-12 10:24 | RAD REPORT ---
EXAM DESCRIPTION: CT - Ct Stroke Brain Wo Cont - 03/12/2021 10:12 am CLINICAL HISTORY: DIZZINESS Headache, drowsiness, CVA symptomology COMPARISON: Head Brain Wo Cont dated 12/21/2017 TECHNIQUE: All CT scans are performed using dose optimization technique as appropriate and may inclu de automated exposure control or mA/KV adjustment according to patient size. FINDINGS: No intracranial hemorrhage, hydrocephalus or extra-axial fluid collection.Mild generalized brain atrophy is present with mild periventricular and deep white matter chronic microvascular ische dimas changes.No areas of brain edema or evidence of midline shift. The paranasal sinuses and mastoids are clear. The calvarium is intact. IMPRESSION: No acute intracranial abnormality. The findings were discussed with Dr. Lopez in the ER On 03/12/2021 at 10:14 a.m. by telephone.
[2021-03-12 10:40] LABS: Absolute Lymphocytes (CBC) 1.2 K/uL (0.7-4.9); Basophils % 0.3 % (0-1.3); Hematocrit 40.4 % (39.6-49.0); Lymphocytes % 21.4 % (15.3-44.8); MPV 7.8 fL (7.6-11.3); RBC Red Blood Cell Count 4.48 M/uL (4.33-5.43)
--- NOTE | 2021-03-12 10:40 | RAD REPORT ---
EXAM DESCRIPTION: CT - Head angio - 03/12/2021 10:25 am CLINICAL HISTORY: DIZZINESS Headache, drowsiness, CVA symptomology COMPARISON: Ct Stroke Brain Wo Cont dated 03/12/2021; Head Brain Wo Cont dated 12/21/2017 TECHNIQUE: CT angiography of the head was performed with MIPs. All CT scans are performed using dose optimization technique as appropriate and may include automated exposure control or mA/KV adjustment according to patient size. FINDINGS: No evidence of aneurysm is detected. No flow-limiting stenosis or vascular malformation id entified. Antegrade flow is seen in the vertebral arteries. The vertebral arteries are codominant. The visualized dural venous sinuses are patent. IMPRESSION: No significant flow abnormality is detected.
[2021-03-12] MEDS ORDERED: ONDANSETRON 4 MG/2 ML VIAL ONE (10:45)
--- NOTE | 2021-03-12 10:45 | RAD REPORT ---
EXAM DESCRIPTION: CT - Neck Angio - 03/12/2021 10:21 am CLINICAL HISTORY: dizziness Headache, drowsiness, dizziness, CVA symptomology COMPARISON: No comparisons TECHNIQUE: CT angiography of the neck vessels was performed with MIPs. All CT scans are performed using dose optimization technique as appropriate and may include automated exposure control or mA/KV adjustment according to patient size. FINDINGS: A left aortic arch is identified with normal 4 vessel configuration of the great vessels. No significant flow abnormality is seen of the common carotid bilaterally. Mild hard plaque is seen in both carotid bulbs. This does not result in significant carotid stenosis. Normal flow is seen within both vertebral arteries. Moderate cervical degenerative changes. IMPRESSION: No significant carotid stenosis is identified.
[2021-03-12] MEDS ORDERED: NA CHLORIDE 0.9% 500 ML ONE (10:46)
[2021-03-12 10:51] LABS: Protime INR 1.03
[2021-03-12 11:05] LABS: BUN Blood Urea Nitrogen 23 mg/dL (7-18); Bicarbonate 27 mmol/L (21-32); Glucose Level 192 mg/dL (74-106); Potassium 4.2 mmol/L (3.5-5.1); Sodium Level 135 mmol/L (136-145); Troponin (Emerg Dept Use Only) < 0.02 ng/mL (0.0-0.045)
--- NOTE | 2021-03-12 11:05 | RAD REPORT ---
EXAM DESCRIPTION: RAD - Chest Single View - 03/12/2021 10:38 am CLINICAL HISTORY: dizziness Chest pain. COMPARISON: Chest Pa And Lat (2 Views) dated 02/05/2019; Chest Single View dated 12/20/2017 FINDINGS: Portable technique limits examination quality. [id number] bilateral interstitial lung opacities are present, greater on the left. This most li reza is related to underlying viral infection or bronchitis. The heart is normal in size. No displace d fractures.Left shoulder hardware is noted.
--- NOTE | 2021-03-12 15:54 | ER ---
Nurse's Notes Formerly [facility] Name: Bradley Osei Age: 80 yrs Sex: Male : 1940 Arrival Date: 03/12/2021 Time: 09:47 Bed 30 Private MD: Diagnosis: Dizziness and giddiness;Dehydration;Syncope Near Presentation: 03/12 09:57 Chief complaint: Patient states: Dizziness and nausea since 0900. Coronavirus screen: Vaccine status: Patient reports receiving the 2nd dose of the covid vaccine. Pfizer. Ebola Screen: No symptoms or risks identified at this time. Initial Sepsis Screen: Does the patient meet any 2 criteria? No. Patient's initial sepsis screen is negative. Does the patient have a suspected source of infection? No. Patient's initial sepsis screen is negative. Risk Assessment: Do you want to hurt yourself or someone else? Patient reports no desire to harm self or others. Onset of symptoms was March 12, 2021 at 09:00. 09:57 Method Of Arrival: Wheelchair 09:57 Acuity: PAT 2 09:57 An acute neurological deficit is present. The charge nurse has been notified. The ss patient has been moved to a treatment area. 11:01 Pre-hospital glucose is not applicable to this patient. 1 Triage Assessment: 09:57 The onset of the patients symptoms was March 12, 2021 at 09:00. General: Appears in jl7 no apparent distress. uncomfortable, Behavior is calm, cooperative, appropriate for age. Pain: Complains of pain in ORTIZ Pain currently is 2 out of 10 on a pain scale. Neuro: Reports dizziness, since 0900. Stroke Activation: Symptom onset < 3 hours Physician: Stroke Attending; Name: ; Notified At: ; Arrived At: Physician: Chief Stroke Resident; Name: ; Notified At: ; Arrived At: Physician: Stroke Resident; Name: ; Notified At: ; Arrived At: Physician: ED Attending; Name: Jessica; Notified At: 10:00; Arrived At: 10:00 Physician: ED Resident; Name: ; Notified At: ; Arrived At: Historical: - Allergies: :57 NSAIDS; ss - Home Meds: :57 carvedilol Oral [Active]; Cozaar Oral [Active]; Novolin N Sub-Q [Active]; Novolin R ss Sub-Q [Active]; Omeprazole Oral [Active]; - PMHx: 09:57 carpal tunnel; diabetes mellitus; enlarged prostate; High Cholesterol; Hypertension; ss stomach issues; Ulcers; - PSHx: 09:57 back surgery; Cholecystectomy; ss - Immunization history:: Client reports receiving the 2nd dose of the Covid vaccine, Date received: February 2021 [employer], received booster shot. - Social history:: Smoking status: Patient denies any tobacco usage or history of. - Family history:: not pertinent. - Hospitalizations: : No recent hospitalization is reported. - Code Status:: Full code. Screenin:59 Abuse screen: Denies threats or abuse. Nutritional screening: No deficits noted. 1 Tuberculosis screening: No symptoms or risk factors identified. Fall Risk Secondary diagnosis (15 points) dizziness. IV access (20 points). Ambulatory Aid- Gait- Weak (10 pts.). Mental Status- Oriented to own ability (0 pts). Assessment: 09:57 Reassessment: Pt to CT via wheelchair with TAWNYA Lugo. jl7 10:57 VAN Scoring: Arm Drift: Patients demonstrates NO arm weakness. Patient is VAN Negative. kh1 Visual Disturbance: No visual disturbance noted. Aphasia: No aphasia noted. Neglect: No neglect noted. The patient is alert, and able to follow commands. The patient does not exhibit slurred or garbled speech. The patient is not exhibiting difficulty speaking. The patient does not exhibit difficulty understanding words. The patient is able to swallow own secretions with no drooling or need for suction. Patient tolerated one teaspoon of water. No drooling, immediate coughing, gurgling, or clearing of the throat was noted. The patient tolerated 90mL of water. No drooling, immediate coughing, gurgling, or clearing of the throat was noted. The patient passed the bedside swallow screening. Oral medications may be given as ordered. Contact Physician for further diet orders. 11:00 Patient has been NPO before screening. 1 11:01 T-PA (Activase) Screening: Indications: Definite evidence of stroke, ischemic, embolic, kh1 or hypertensive: No. Contraindications:. 14:11 Reassessment: Patient appears in no apparent distress at this time. No changes from [facility] previously documented assessment. Patient and/or family updated on plan of care and expected duration. Pain level reassessed. Patient is alert, oriented x 3, equal unlabored respirations, skin warm/dry/pink. Vital Signs: 09:57 BP 124 / 56; Pulse 54; Resp 17; Temp 97.1; Pulse Ox 100% ; Weight 95.25 kg; Height 5 ss ft. 8 in. (172.72 cm); Pain 2/10; 10:56 BP 123 / 94; Pulse 48; Resp 18 S; Temp 97.0(O); Pulse Ox 98% on R/A; kh1 14:12 BP 126 / 63; Pulse 50; Resp 18; Pulse Ox 100% on R/A; kh1 09:57 Body Mass Index 31.93 (95.25 kg, 172.72 cm) ss Vitals: 14:12 Cardiac Rhythm Assessment Sinus beatriz. kh1 NIH Stroke Scale Scores: 10:28 NIHSS Score: 0 rn 10:57 NIHSS Score: 0 [facility] ED Course: 09:47 Patient arrived in ED. rg4 09:57 Arm band placed on right wrist. jl7 10:01 Triage completed. ss 10:01 Zhen Lopez MD is Attending Physician. rn 10:10 Inserted saline lock: 22 gauge in left forearm, using aseptic technique. jl7 10:12 CT Stroke Brain w/o Contrast In Process Unspecified. EDMS 10:18 Li Luna is Primary Nurse. kh1 10:20 CT Neck Angio In Process Unspecified. EDMS 10:25 Head angio In Process Unspecified. EDMS 10:35 Basic Metabolic Panel Sent. kh1 10:35 Basic Metabolic Panel Sent. kh1 10:35 Stroke CXR 1 View Sent. kh1 10:36 CBC with Diff Sent. kh1 10:36 Protime (+inr) Sent. kh1 10:36 Ptt, Activated Sent. kh1 10:36 Troponin (emerg Dept Use Only) Sent. kh1 10:38 Stroke CXR 1 View In Process Unspecified. EDMS 11:00 No provider procedures requiring assistance completed. kh1 11:00 Patient has correct armband on for positive identification. Bed in low position. Call [facility] light in reach. Side rails up X2. telemetry monitor on. Pulse ox on. NIBP on. 12:20 COVID-19 : Document "Date of Symptom Onset" if Symptomatic. Sent. [facility] Administered Medications: 10:35 Drug: NS 0.9% 500 ml Route: IV; Rate: bolus; Site: left forearm; [facility] 10:35 Drug: Zofran (Ondansetron) 4 mg Route: IVP; Site: left forearm; [facility] Point of Care Testing: Blood Glucose: 10:56 Blood Glucose: 161 mg/dL; [facility] Ranges: Outcome: 15:53 Discharge ordered by . rn 16:40 Patient left the ED. NIH Stroke Scale - NIH Stroke Score Date: 03/12/2021 Time: 10:28 Total Score = 0 1a. Level of Consciousness (LOC) - 0(Alert) 1b. Level of Consciousness (LOC) (Month \\T\\ Age) - 0(Both) 1c. LOC Commands (Open \\T\\ Closes Eyes/Rehabilitation Services Director) - 0(Both) 2. Best Gaze (Lateral Gaze Paresis) - 0(Normal) 3. Visual Field Loss - 0(No visual loss) 4. Facial Palsy - 0(Normal) 5a. Left Arm: Motor (10-second hold) - 0(No drift) 5b. Right Arm: Motor (10-second hold) - 0(No drift) 6a. Left Leg: Motor (5-second hold - always test supine) - 0(No drift) 6b. Right Leg: Motor (5-second hold - always test supine) - 0(No drift) 7. Limb Ataxia (finger/nose \\T\\ heel/fenton - test with eyes open) - 0(Absent) 8. Sensory Loss (pinprick arms/legs/face) - 0(Normal) 9. Best Language: Aphasia (description/naming/reading) - 0(No aphasia) 10. Dysarthria (speech clarity - read or repeat words) - 0(Normal) 11. Extinction and Inattention (visual/tactile/auditory/spatial/personal) - 0(No abnormality) Initials: tawnya NIH Stroke Scale - NIH Stroke Score Date: 03/12/2021 Time: 10:57 Total Score = 0 1a. Level of Consciousness (LOC) - 0(Alert) 1b. Level of Consciousness (LOC) (Month \\T\\ Age) - 0(Both) 1c. LOC Commands (Open \\T\\ Closes Eyes/Rehabilitation Services Director) - 0(Both) 2. Best Gaze (Lateral Gaze Paresis) - 0(Normal) 3. Visual Field Loss - 0(No visual loss) 4. Facial Palsy - 0(Normal) 5a. Left Arm: Motor (10-second hold) - 0(No drift) 5b. Right Arm: Motor (10-second hold) - 0(No drift) 6a. Left Leg: Motor (5-second hold - always test supine) - 0(No drift) 6b. Right Leg: Motor (5-second hold - always test supine) - 0(No drift) 7. Limb Ataxia (finger/nose \\T\\ heel/fenton - test with eyes open) - 0(Absent) 8. Sensory Loss (pinprick arms/legs/face) - 0(Normal) 9. Best Language: Aphasia (description/naming/reading) - 0(No aphasia) 10. Dysarthria (speech clarity - read or repeat words) - 0(Normal) 11. Extinction and Inattention (visual/tactile/auditory/spatial/personal) - 0(No abnormality) Initials: [facility] Signatures: Dispatcher [employer] EDMS Zhen Lopez MD MD rn Smirch, Shelby RN RN Lauren Snyder RN RN Shawnee Sams4 Brittney Bain RN RN jl7 Harris, Kecia [facility] Corrections: (The following items were deleted from the chart) 10: 10:29 The onset of the patients symptoms was March 12, 2021 at 09:00 [facility] jl7 10: 10:29 General: Appears in no apparent distress. uncomfortable, Behavior is jl7 calm, cooperative, appropriate for age, jl7 10:30 10:29 Pain: Complains of pain in ORTIZ Pain currently is 2 out of 10 on a pain jl7 scale. jl7 10:30 10:29 Neuro: Reports dizziness, since 09 jl7 jl7 12:59 12:20 CORONAVIRUS drawn and sent. [facility] EDWV
--- NOTE | 2021-03-12 15:54 | EDPHYS ---
Physician Documentation [facility] Name: Bradley Osei Age: 80 yrs Sex: Male : 1940 Arrival Date: 03/12/2021 Time: 09:47 Bed 30 Private MD: ED Physician Zhen Lopez HPI: 03/12 10:43 This 80 yrs old Male presents to ER via Wheelchair with complaints of rn Dizziness, Weakness. 10:43 The patient presents with dizziness, feeling faint, generalized weakness, rn lightheadedness. Onset: The symptoms/episode began/occurred just prior to arrival. Context: occurred at a hospital, occurred while the patient was standing, just prior to the episode the patient experienced no apparent symptoms. Modifying factors: The symptoms are alleviated by nothing, the symptoms are aggravated by standing up, changing position. Associated signs and symptoms: Pertinent positives: dizziness, Pertinent negatives: abdominal pain, chest pain, combativeness, confusion, diaphoresis, focal weakness, head injury, headache, seizure, shortness of breath, syncope, vomiting. Severity of symptoms: At their worst the symptoms were moderate in the emergency department the symptoms have improved. The patient has not experienced similar symptoms in the past. The patient has not recently seen a physician. Patient reports upstairs visiting who was hospitalized for urinary tract infection. He was standing felt lightheaded and dizzy almost like he was going to pass out. No syncopal episode. Has not eaten anything today and eating and sleeping habits thrown off since hospitalized. Denies any focal pain. denies any focal weakness or numbness. Reports felt like might pass out and unsteady so sat down which seemed to help his symptoms a little bit.. Historical: - Allergies: 09:57 NSAIDS; ss - Home Meds: 09:57 carvedilol Oral [Active]; Cozaar Oral [Active]; Novolin N Sub-Q [Active]; Novolin R ss Sub-Q [Active]; Omeprazole Oral [Active]; - PMHx: 09:57 carpal tunnel; diabetes mellitus; enlarged prostate; High Cholesterol; Hypertension; ss stomach issues; Ulcers; - PSHx: 09:57 back surgery; Cholecystectomy; ss - Immunization history:: Client reports receiving the 2nd dose of the Covid vaccine, Date received: February 2021 [employer], received booster shot. - Social history:: Smoking status: Patient denies any tobacco usage or history of. - Family history:: not pertinent. - Hospitalizations: : No recent hospitalization is reported. - Code Status:: Full code. ROS: 10:43 Constitutional: Negative for fever, chills, and weight loss, Eyes: Negative for injury, rn pain, redness, and discharge, ENT: Negative for injury, pain, and discharge, Neck: Negative for injury, pain, and swelling, Cardiovascular: Negative for chest pain, palpitations, and edema, Respiratory: Negative for shortness of breath, cough, wheezing, and pleuritic chest pain, Abdomen/GI: Negative for abdominal pain, nausea, vomiting, diarrhea, and constipation, Back: Negative for injury and pain, : Negative for injury, bleeding, discharge, and swelling, MS/Extremity: Negative for injury and deformity, Skin: Negative for injury, rash, and discoloration, Neuro: Negative for headache, focal weakness, numbness, tingling, and seizure. 10:43 All other systems are negative. Exam: 10:28 Constitutional: This is a well developed, well nourished patient who is awake, alert, rn and in no acute distress. Head/Face: Normocephalic, atraumatic. Eyes: Periorbital areas with no swelling, redness, or edema. ENT: Dry mucous membranes Cardiovascular: Bradycardic, regular. No pulse deficits. Respiratory: Speaking full sentences, unlabored. No increased work of breathing, no retractions or nasal flaring. Abdomen/GI: Soft, non-tender Skin: Warm, dry MS/ Extremity: Pulses equal, no cyanosis. Neurovascular intact. Full, normal range of motion. Equal circumference. Neuro: Awake and alert, GCS 15, oriented to person, place, time, and situation. Cranial nerves II-XII grossly intact. Motor strength 5/5 in all extremities. Sensory grossly intact. Cerebellar exam normal. 10:49 ECG was reviewed by the Attending Physician. rn Vital Signs: 09:57 BP 124 / 56; Pulse 54; Resp 17; Temp 97.1; Pulse Ox 100% ; Weight 95.25 kg; Height 5 ss ft. 8 in. (172.72 cm); Pain 2/10; 10:56 BP 123 / 94; Pulse 48; Resp 18 S; Temp 97.0(O); Pulse Ox 98% on R/A; kh1 14:12 BP 126 / 63; Pulse 50; Resp 18; Pulse Ox 100% on R/A; kh1 09:57 Body Mass Index 31.93 (95.25 kg, 172.72 cm) ss NIH Stroke Scale Scores: 10:28 NIHSS Score: 0 rn 10:57 NIHSS Score: 0 kh1 MDM: 10:01 Patient medically screened. rn 10:52 ED course: CT head and neck angio without acute findings. No aneurysm. No evidence of rn large vessel occlusion.. ED course: No indication for TPA at this time given NIH stroke scale of [address] head as well as CT angiograms negative for acute blockages.. 14:16 ED course: Patient feels much better, states dizziness and nausea have resolved. Will rn order some food and reevaluate. If can ambulate will DC home given CT and CT angiograms negative.. 15:51 Differential diagnosis: cardiac arrhythmia, generalized weakness, hypovolemia, rn idiopathic dizziness, near-syncope, vertigo. Data reviewed: vital signs, nurses notes, lab test result(s), EKG, radiologic studies, CT scan, plain films, and as a result, I will discharge patient. Data interpreted: forming department supervisor: rate is 56 beats/min, rhythm is sinus bradycardia, with no ectopy, Interpretation: bradycardia, Pulse oximetry: on room air is 100 %. Interpretation: normal. Counseling: I had a detailed discussion with the patient and/or guardian regarding: the historical points, exam findings, and any diagnostic results supporting the discharge/admit diagnosis, lab results, radiology results, the need for outpatient follow up, to return to the emergency department if symptoms worsen or persist or if there are any questions or concerns that arise at home. Response to treatment: the patient's symptoms have markedly improved after treatment, the patient's condition has returned to base line, the patient is now symptom free, and as a result, I will discharge patient. Special discussion: I discussed with the patient/guardian in detail that at this point there is no indication for admission to the hospital. It is understood, however, that if the symptoms persist or worsen the patient needs to return immediately for re-evaluation. ED course: And feels much better. Denies any dizziness. Much better after eating and fluids. Ambulatory in ER without assistance and no further dizziness. Repeat neurological exam normal. Will DC home as patient states feels like can go home. CT head and CT angios head and neck negative for acute abnormalities.. 03/12 10:03 Order name: Basic Metabolic Panel 03/12 10:03 Order name: CBC with Diff; Complete Time: 10:53 rn 03/12 10:03 Order name: Protime (+inr); Complete Time: 10:53 rn 03/12 10:03 Order name: Ptt, Activated; Complete Time: 10:53 03/12 10:03 Order name: Troponin (emerg Dept Use Only); Complete Time: 13:12 rn 03/12 10:04 Order name: Basic Metabolic Panel; Complete Time: 13:12 EDAZ 03/12 10:03 Order name: CT Stroke Brain w/o Contrast; Complete Time: 10:53 rn 03/12 10:03 Order name: Stroke CXR 1 View; Complete Time: 11:06 rn 03/12 10:03 Order name: CT Neck Angio; Complete Time: 10:53 rn 03/12 10:42 Order name: CREATININE WHOLE BLOOD; Complete Time: 10:53 EDAZ 03/12 11:02 Order name: Glucose, Ancillary Testing; Complete Time: 11:06 EDAZ 03/12 11:32 Order name: COVID-19 : Document "Date of Symptom Onset" if Symptomatic. rn 03/12 14:02 Order name: SARS-COV-2 RT PCR; Complete Time: 14:08 EDAZ 03/12 10:03 Order name: EKG; Complete Time: 10:04 03/12 10:03 Order name: Accucheck; Complete Time: 10:35 03/12 10:03 Order name: Cardiac monitoring; Complete Time: 10:35 03/12 10:03 Order name: EKG - Nurse/Tech; Complete Time: 10:51 03/12 10:03 Order name: IV Saline Lock; Complete Time: 10:35 03/12 10:03 Order name: Labs collected and sent; Complete Time: 10:36 03/12 10:03 Order name: O2 Per Protocol; Complete Time: 10:36 03/12 10:03 Order name: O2 Sat Monitoring; Complete Time: 10:36 03/12 10:03 Order name: Stroke Swallow Screen 03/12 10:11 Order name: Head angio; Complete Time: 10:53 EDMS 03/12 14:17 Order name: Diet Regular; Complete Time: 14:18 bd EC:49 Rate is 51 beats/min. Rhythm is regular. QRS Redig is Normal. [place] interval is normal. QRS rn interval is normal. QT interval is normal. No Q waves. T waves are Normal. No ST changes noted. Clinical impression: Sinus bradycardia and RBBB. Interpreted by me. Reviewed by me. Administered Medications: 10:35 Drug: NS 0.9% 500 ml Route: IV; Rate: bolus; Site: left forearm; kh1 10:35 Drug: Zofran (Ondansetron) 4 mg Route: IVP; Site: left forearm; kh1 Point of Care Testing: Blood Glucose: 10:56 Blood Glucose: 161 mg/dL; kh1 Ranges: Critical Glucose Levels:Adult <50 mg/dl or >400 mg/dl <40 mg/dl or >180 mg/dl Disposition Summary: 03/12/21 15:53 Discharge Ordered Location: Home rn Problem: new rn Symptoms: have improved rn Condition: Stable rn Diagnosis - Dizziness and giddiness rn - Dehydration rn - Syncope Near rn Followup: rn - With: Private Physician - When: 1 - 2 days - Reason: Recheck today's complaints, Re-evaluation by your physician Discharge Instructions: - Discharge Summary Sheet rn - Dehydration, Adult rn - Dizziness rn - Near-Syncope rn Forms: - Medication Reconciliation Form rn - Thank You Letter rn - Antibiotic rn provider relations - Prescription Opioid Use rn Prescriptions: - Zithromax Z-Kush 250 mg Oral Tablet - take 1 tablet by ORAL route as directed for 5 days Day 1 - take two (2) tablets rn one time. Day 2, 3, 4 , 5 take one (1) tablet once daily.; 6 tablet; Refills: 0, Product Selection Permitted NIH Stroke Scale - NIH Stroke Score Date: 03/12/2021 Time: 10:28 Total Score = 0 1a. Level of Consciousness (LOC) - 0(Alert) 1b. Level of Consciousness (LOC) (Month \\T\\ Age) - 0(Both) 1c. LOC Commands (Open \\T\\ Closes Eyes/Mixer Diamond Powder) - 0(Both) 2. Best Gaze (Lateral Gaze Paresis) - 0(Normal) 3. Visual Field Loss - 0(No visual loss) 4. Facial Palsy - 0(Normal) 5a. Left Arm: Motor (10-second hold) - 0(No drift) 5b. Right Arm: Motor (10-second hold) - 0(No drift) 6a. Left Leg: Motor (5-second hold - always test supine) - 0(No drift) 6b. Right Leg: Motor (5-second hold - always test supine) - 0(No drift) 7. Limb Ataxia (finger/nose \\T\\ heel/fenton - test with eyes open) - 0(Absent) 8. Sensory Loss (pinprick arms/legs/face) - 0(Normal) 9. Best Language: Aphasia (description/naming/reading) - 0(No aphasia) 10. Dysarthria (speech clarity - read or repeat words) - 0(Normal) 11. Extinction and Inattention (visual/tactile/auditory/spatial/personal) - 0(No abnormality) Initials: vasu NIH Stroke Scale - NIH Stroke Score Date: 03/12/2021 Time: 10:57 Total Score = 0 1a. Level of Consciousness (LOC) - 0(Alert) 1b. Level of Consciousness (LOC) (Month \\T\\ Age) - 0(Both) 1c. LOC Commands (Open \\T\\ Closes Eyes/Mixer Diamond Powder) - 0(Both) 2. Best Gaze (Lateral Gaze Paresis) - 0(Normal) 3. Visual Field Loss - 0(No visual loss) 4. Facial Palsy - 0(Normal) 5a. Left Arm: Motor (10-second hold) - 0(No drift) 5b. Right Arm: Motor (10-second hold) - 0(No drift) 6a. Left Leg: Motor (5-second hold - always test supine) - 0(No drift) 6b. Right Leg: Motor (5-second hold - always test supine) - 0(No drift) 7. Limb Ataxia (finger/nose \\T\\ heel/fenton - test with eyes open) - 0(Absent) 8. Sensory Loss (pinprick arms/legs/face) - 0(Normal) 9. Best Language: Aphasia (description/naming/reading) - 0(No aphasia) 10. Dysarthria (speech clarity - read or repeat words) - 0(Normal) 11. Extinction and Inattention (visual/tactile/auditory/spatial/personal) - 0(No abnormality) Initials: [facility] Signatures: Dispatcher [employer] EDMS Zhen Lopez MD MD rn Smirch, Shelby, RN RN ss Harris, Kecia [facility] Corrections: (The following items were deleted from the chart) 10:11 10:04 Head Brain Wo Cont+CT.RAD.BRZ ordered. EDMS EDMS 12:59 11:33 CORONAVIRUS ordered. EDMS EDMS
[2021-03-12 17:24] VITALS: TEMP 97
[2021-03-12 17:25] VITALS: BP 126/63; O2SAT 100
--- NOTE | 2021-03-13 10:26 | EKG ---
Test Date: 2021-03-12 Test Time: 10:42:20 Angio Technologist: CECIL MEASUREMENT RESULTS: Intervals: Rate: 51 OR: 182 QRSD: 154 QT: 466 QTc: 429 [place]: P: 6 OR: 182 QRS: -29 T: -2 INTERPRETIVE STATEMENTS: Sinus bradycardia Right bundle branch block Minimal voltage criteria for LVH, may be normal variant Abnormal ECG Compared to ECG 02/05/2019 12:57:09 Left ventricular hypertrophy now present Left-axis deviation no longer present Electronically Signed On 03-13-21 10:22:15 CDT by Grady Tobin
== END 2021-03-12 16:40 | disposition home or self-care (01) ==
LOC: ER 09:42
DX: E86.0 Dehydration (principal); R55 Syncope and collapse; Z20.822 Contact with and (suspected) exposure to COVID-19
CPT/HCPCS: 93005; 85025; 80048; 36415; 85610; 82565; 82947; 85730; 84484; 70496; 70498; 70450; 71045; 96374; 99284; U0003; Q9967; J7040; J2405